=== PATIENT | male | born 1955 | race Caucasian/White ===

== ENCOUNTER 2017-04-23 08:11 | Day surgery (SDC) | payer MEDICARE, OTHER ==
--- NOTE | ~2017-04-23 | EGD ---
EGD REPORT [facility] [address] [place] [address] NAME: GLORIA DOWD : 53 STATUS : REG [facility]#: [id number] AGE: 61 ADM/REG DATE : 04/23/17 MR#: [id number] REPORT SERV DATE: 04/23/17 DICTATED BY: CARA DUENAS DATE: 04/23/17 REPORT STATUS : Draft [facility]ANS[facility] BY: [facility] DATE: 04/23/17 Endoscopy Center Patient Name: Gloria Dowd. Date of : 1955 Attending MD: CARA DUENAS MD Procedure Date No Time: 04/23/2017 Procedure: Upper GI endoscopy Indications: Dysphagia, Weight loss Referring MD: Priscilla Colvin Medicines: Propofol per Anesthesia Complications: No immediate complications. Procedure: Pre-Anesthesia Assessment: - ASA Grade Assessment: III - A patient with severe systemic disease. After obtaining informed consent, the endoscope was passed under direct vision. Throughout the procedure, the patient's blood pressure, pulse, and oxygen saturations were monitored continuously. The GIF [id number] was introduced through the mouth, and advanced to the third part of duodenum. The upper GI endoscopy was accomplished without difficulty. The patient tolerated the procedure well. Findings: LA Grade D (one or more mucosal breaks involving at least 75% of esophageal circumference) esophagitis with ulcerations, with no bleeding was found in the lower third of the esophagus. A benign-appearing, intrinsic mild stenosis was found in the lower third of the esophagus and was traversed. The lesion was not amenable to dilation, and this was not attempted. Due to ulcerations in the distal esophagus. A small hiatus hernia was present. as seen on retroflexion Diffuse mild inflammation characterized by congestion (edema) and erythema was found in the entire examined stomach. Biopsies were taken with a cold forceps for Helicobacter pylori testing. The examined duodenum was normal. Impression: - LA Grade D reflux esophagitis. - Benign-appearing esophageal stricture. - Hiatus hernia. - Gastritis. Biopsied. - Normal examined duodenum. Recommendation: - Patient has a contact number available for emergencies. The signs and symptoms of potential delayed EGD REPORT [address] [place]. [address] NAME: GLORIA DOWD : 53 STATUS : [place] [facility] [place] [id number] AGE: 61 ADM/REG DATE : 04/23/17 MR#: [id number] REPORT SERV DATE: 04/23/17 DICTATED BY: CARA DUENAS DATE: 04/23/17 REPORT STATUS : Draft TRANSCRIBED BY: [facility] DATE: 04/23/17 complications were discussed with the patient. Return to normal activities tomorrow. Written discharge instructions were provided to the patient. - Return to previous diet. - Continue present medications. - Discontinue Pepcid (famotidine). - Use Protonix (pantoprazole) 40 mg PO BID. - take 30-60 minutes before breakfast and supper - Use sucralfate suspension 1 gram PO QID. - take before each meal and at bedtime - Repeat the upper endoscopy in 2 months to check healing. - Return to my office as previously scheduled. - Discharge patient to home. Procedure Code(s): --- Professional --- 87437, Esophagogastroduodenoscopy, flexible, transoral; with biopsy, single or multiple Diagnosis Code(s): --- Professional --- K21.0, Gastro-esophageal reflux disease with esophagitis K22.2, Esophageal obstruction K44.9, Diaphragmatic hernia without obstruction or gangrene K29.70, Gastritis, unspecified, without bleeding R13.10, Dysphagia, unspecified R63.4, Abnormal weight loss CPT copyright 2013 [employer]. All rights reserved. The codes documented in this report are preliminary and upon sheeter helper review may be revised to meet current compliance requirements. Cara Duenas MD CARA DUENAS MD 04/23/2017 10:10 AM This report has been signed electronically. Number of Addenda: 0 Note Initiated On: 04/23/2017 9:34 AM Scope Withdrawal Time 0 hours 0 minutes 0 seconds [address] [place] [address]
[~2017-04-23 08:11] MED LIST: ADVIL 100100 MG/5 M PO; ALLEGRA180 PO; ALOE VESTA EX; AMITIZA24 PO; ATV1 PO; BISR PR; CENTRUM PO; CONSTULOSE PO; DESITIN TOP; GGDM5ML PO; LEVOTHYROXIN50 MCG PO; LEVOTHYROXIN75 MCG PO; LISTERINE; MAXIMUM D3 PO; MIRALAXPKT PO; NEO-OINT TOP; PEP20 PO; SEROQUEL300 MG PO; SUNSCREEN; T PO; VITAMIN D31000 UNIT PO; ZOL50 PO; [UNRECOGNIZED DRUG - OTHER] T; [UNRECOGNIZED DRUG - SUPPLY]
[2017-06-23] MEDS ORDERED: SUCR PO (12:13)
[2017-06-23] MEDS ORDERED: PROTONIX PO (12:15)
== END 2017-04-23 23:59 | disposition home or self-care (01) ==
LOC: DMU 08:11
PROVIDERS: Internal Medicine Gastroenterology
PROC: 0DB68ZX Excision of Stomach, Via Natural or Artificial Opening Endoscopic, Diagnostic (ICD-10-PCS; principal; 2017-04-23 09:00)
DX: K29.70 Gastritis, unspecified, without bleeding (principal); K21.0 Gastro-esophageal reflux disease with esophagitis; K22.2 Esophageal obstruction; K44.9 Diaphragmatic hernia without obstruction or gangrene; R13.10 Dysphagia, unspecified; R63.4 Abnormal weight loss; F32.9 Major depressive disorder, single episode, unspecified; F90.9 Attention-deficit hyperactivity disorder, unspecified type; F84.0 Autistic disorder; G47.00 Insomnia, unspecified; F41.9 Anxiety disorder, unspecified; F39 Unspecified mood [affective] disorder; R32 Unspecified urinary incontinence; J30.2 Other seasonal allergic rhinitis; F73 Profound intellectual disabilities; Z88.1 Allergy status to other antibiotic agents; Z98.890 Other specified postprocedural states; Z79.899 Other long term (current) drug therapy
CPT/HCPCS: 88305; J2250